=== PATIENT | female | born 1955 | race African-American/Black ===

== ENCOUNTER 2018-11-10 22:49 | Emergency (ER) | payer MEDICARE, MEDICAID ==
[~2018-11-10] VITALS: Ht 167.6 cm; Wt 93.0 kg
[~2018-11-10 22:49] MED LIST: HYDR-4005 PO; KEPP500 PO; PHEN100C4 PO
[2018-11-10] MEDS ORDERED: KETOROLAC 30MG/ML VIAL IV STA (23:52)
[2018-11-10] MEDS ORDERED: ONDANSETRON HCL 4MG/2ML INJ IV STA (23:52)
[2018-11-11 00:13] LABS: BASOPHILS % 0.8 % (0.0-2.0); EOSINOPHILS % 2.7 % (0.0-5.0); HEMATOCRIT. 36.9 % (36.0-48.0); HEMOGLOBIN. 12.6 g/dL (12.0-16.0); LYMPHOCYTES % 32.8 % (20.0-50.0); MEAN CORPUSCULAR HEMOGLOBIN 31.6 pg (28.0-32.0); MEAN CORPUSCULAR VOLUME 92.9 fL (81.0-99.0); MEAN PLATELET VOLUME 7.9 fl (7.4-10.4); MONOCYTES % 11.2 % (2.0-8.0); NEUTROPHILS % 52.5 % (40.0-76.0); PLATELET 191 x1000/uL (130-400); RED BLOOD CELL COUNT 3.97 mill/uL (4.2-5.4); RED CELL DISTRIBUTION WIDTH 12.5 % (11.6-14.6)
[2018-11-11 00:18] LABS: CHLORIDE 103 mEq/L (98-107)
[2018-11-11] MEDS ORDERED: ACETAMINOPHEN 500MG TABLET PO ONE (01:30)
[2018-11-11] MEDS ORDERED: POTASSIUM CHLORIDE 20MEQ TABLET SR PO SCH (01:30)
[2018-11-11 05:11] VITALS: BP 129/66
== END 2018-11-11 05:21 | disposition home or self-care (01) ==
LOC: ER 23:18
DX: I10 Essential (primary) hypertension (principal); Z88.6 Allergy status to analgesic agent; R53.1 Weakness; R42 Dizziness and giddiness; R51 Headache
CPT/HCPCS: 36415; 71045; 80053; 83880; 84484; 85025; 93005; 96374; 99284; J1885; J2405